=== PATIENT | female | born 2000 | race Caucasian/White ===

== ENCOUNTER 2019-04-01 15:52 | Emergency (ER) | payer OTHER, SELFPAY ==
[2019-04-01 15:53] VITALS: BP 118/74; PULSE 95; RESP 16; TEMP 36.7; O2SAT 100; BMI 25.6
[2019-04-01] MEDS: proCHLORPERazine 10 MG/2 ML Vial IV (16:18)
[2019-04-01] MEDS: DiphenhydrAMINE 50 MG/ML Syringe 25 MG IV (16:18)
[2019-04-01] MEDS: Ketorolac 30 MG/ML Syringe IV (16:18)
[2019-04-01] MEDS: 0.9% Normal Saline 1,000 ML 999 ML IV (16:18)
--- NOTE | 2019-04-01 17:30 | CT_ITS ---
STUDY: CT BRAIN WITHOUT CONTRAST REASON FOR EXAM: Female, 18 years old. Headache RADIATION DOSAGE (If Supplied By Facility): DLP = ( 745.49 ) mGycm TECHNIQUE: Transaxial CT imaging of the brain was performed without administration of intravenous contrast material. Individualized dose optimization techniques were used for this CT. COMPARISON: None. FINDINGS: There is no acute bleed or infarct. There are normal white matter tracts. The ventricles are normal in configuration. There is no hydrocephalus. The visualized paranasal sinuses are clear. The mastoid air cells are well aerated. There is no skull fracture. CT/Brain/Head without Contrast IMPRESSION: No acute intracranial abnormality. Electronically Signed: Toni West, at 18:01 EDT Tel , Service support ,
--- NOTE | 2019-04-01 18:54 | ED.VISSUMM ---
- ER Visit Summary Date of Service: 04/01/19 Chief Complaint: Migraine History of Present Illness: The patient is a 18 F with a headache that started 4 days ago. The pain came on gradually and is getting worse. She says it is worse with stress and anxiety. She had dizziness and tunnel vision today and had some paresthesias in her forearms bilaterally. She tried taking some anxiety medicine, but it was not helping. She never had headaches like this before. Denies sudden onset. Denies trauma. Denies blood thinners. Denies any focal symptoms. Physical Examination: Afebrile and vital signs unremarkable. Alert and oriented. No acute distress. HEENT exam unremarkable. Cranial nerves grossly intact. Neck supple. Heart regular rate and rhythm. Lungs clear. Extremities nontender with no edema. Skin normal color with no rash. Normal strength and sensation in her extremities. Normal cerebellar testing. NIH is 0. Test Results: See below Emergency Department Course and Treatment: Patient presents with a headache. No red flag features. She was treated with Compazine, Benadryl, Toradol, and normal saline. On reevaluation, patient is not improved. At this point, CT was ordered. This was negative. I advised the patient that the CT is not 100% sensitive for bleeding, but is very near. She has no other risk factors or red flag features. I do not believe that other imaging or diagnostic testing is indicated. Patient would like to go home. Declined any further treatment here. Will treat with anti-inflammatories and refer to neurology. Patient was given warning signs and will return if she has any problems. Treatment Plan: As above Disposition: Discharge Impression: 1. Acute headache This note was generated with [employer] dictation software. It may contain incorrect words, spelling, and punctuation that were not noted in review of the chart prior to signing ED Disposition - Plan for ED Patient: Referrals: Care Physician,No Primary [Primary Care Provider] -
--- NOTE | 2019-04-01 18:57 | ED.DCSUM_ITS ---
- ER Visit Summary Date of Service: 04/01/19 Chief Complaint: Migraine History of Present Illness: The patient is a 18 F with a headache that started 4 days ago. The pain came on gradually and is getting worse. She says it is worse with stress and anxiety. She had dizziness and tunnel vision today and marcelino d some paresthesias in her forearms bilaterally. She tried taking some anxiety medicine, but it was not helping. She never had headaches like this before. Denies sudden onset. Denies trauma. Denies blood thinners. Denies any focal symptoms. Physical Examination: Afebrile and vital signs unremarkable. Alert and oriented. No acute distress. HEENT exam unremarkable. Cranial nerves grossly intact. Neck supple. Heart regular rate and rhythm. Lungs clear. Extremities nontender with no edema. Skin normal color with no rash. Normal strength and sensation in her extremities. Normal cerebellar testing. NIH is 0. Test Results: See below Emergency Department Course and Treatment: Patient presents with a headache. No red flag features. She was treated with Compazine, Benadryl, Toradol, and normal saline. On reevaluation, patient is not improved. At this point, CT was ordered. This was negative. I advised the patient that the CT is not 100% sensitive for bleeding, but is very near. She has no other risk factors or red flag features. I do not believe that other imaging or diagnostic testing is indicated. Patient would like to go home. Declined any further treatment here. Will treat with anti-inflammatories and refer to neurology. Patient was given warning signs and will return if she has any problems. Treatment Plan: As above Disposition: Discharge Impression: 1. Acute headache This note was generated with [employer] dictation software. It may contain incorrect words, spelling, and punctuation that were not noted in review of the chart prior to signing ED Disposition - Plan for ED Patient: Referrals: Care Physician,No Primary [Primary Care Provider] -
--- NOTE | 2019-04-01 18:58 | ED.DEP ---
ED Disposition - Plan for ED Patient: Instructions: ED Cephalgia Unspecified Prescriptions: Naproxen [Naprosyn] 500 mg PO BID PRN #20 tab Referrals: Remy Pierre MD [STAFF PHYSICIAN] -
[2019-04-01 19:35] VITALS: BP 102/68; PULSE 80; RESP 17; O2SAT 100
--- NOTE | 2019-04-01 19:35 | ED.RN ---
IV DC'ED, CATHETER INTACT, SMALL GAUZE DRESSING PLACED. DISCHARGE INSTRUCTIONS GIVEN TO AND REVIEWED WITH PATIENT, PATIENT DENIES QUESTIONS OR CONCERNS AND VOICES UNDERSTANDING OF DISCHARGE INSTRUCTIONS. PT AMBULATES OUT OF ROOM WITHOUT DIFFICULTY.
== END 2019-04-01 19:40 | disposition home or self-care (01) ==
PROVIDERS: Emergency Provider Emergency Medicine
DX: R51 Headache (principal); Z72.0 Tobacco use
CPT/HCPCS: 70450; 96361; 96374; 96375; 99283; J7030

== ENCOUNTER → 2025-09-25 | Outpatient (CLI) | payer MEDICAID, SELFPAY ==
--- NOTE | 2025-09-25 10:53 | VDUE_ITS ---
Reason For Study Reason For Study: HX RUE DVT Right Proximal Right jugular vein is spontaneous, widely patent, phasic, with no intraluminal echogenicity noted. Right subclavian vein is spontaneous, widely patent, phasic, with no intraluminal echogenicity noted. Right Lower Arm Right radial vein is compressible. Right ulnar vein is compressible. Right Arm Right axillary vein is spontaneous, patent, phasic, competent, compressible and demonstrates augmentation. Right brachial vein is compressible. Right cephalic vein is compressible. Right basilic vein is compressible. Procedure This was a unilateral right upper extremity venous doppler examination. Exam performed in department. VL/Venous Duplex US, Unilateral Interpretation Summary Deep veins of the right upper extremity are patent and compressible segmentally . There is no evidence of deep vein thrombosis. Superficial veins of the right upper extremity are patent and compressible segm entally. There is no evidence of superficial vein thrombosis Ordering Physician: Yoana Marcelo Referring Physician: Troy Del Real Performed By: Luis Marcano RVT ???
== END | disposition home or self-care (01) ==
LOC: CVS 10:52
PROVIDERS: PCP Nurse Practitioner Family; Referring Provider Physician Assistant; Visit Provider Physician Assistant
DX: I82.621 Acute embolism and thrombosis of deep veins of right upper extremity (principal); I82.890 Acute embolism and thrombosis of other specified veins
CPT/HCPCS: 93971